=== PATIENT | male | born 1950 | race Caucasian/White ===

== ENCOUNTER 2024-07-22 09:46 | Outpatient (CLI) | payer MEDICARE, BC, SELFPAY ==
--- NOTE | 2024-07-22 10:15 | MR_ITS ---
[address] [address] Phone:?[phone] Fax:?[phone] Referring Physician Information: Paul Martins M.D. [id number] [facility] [address] Phone:?[phone] Fax:?[phone] Patient:Carter Iglesias D.O.B:?1950 Sex:?Male Phone:?[phone] [facility] MRN:?[id number] Exam Date:?07/22/2024 EXAM: MRI of the RIGHT KNEE, without contrast CLINICAL HISTORY: Ongoing right knee pain. History of previous right knee surgery. COMPARISONS: Radiographs 07/20/2024. TECHNICAL: MR sequences of the right knee: sagittals: PD, PDFS coronals: PD, STIR axials: PD, T2 FS CONTRAST: None SEDATION: None FINDINGS: Bones: No fracture or destructive osseous lesion. 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 Extensive grade III chondromalacia over the median patellar ridge and lateral patellar facet. Retinacula: The medial and lateral retinacula are intact. Fat pads: The infrapatellar, quadriceps, and prefemoral fat pads are unremarkable. Knee joint: Effusion: Small right knee joint effusion. Popliteal cyst: None. Intra-articular bodies: None. Posteromedial corner: The semimembranosus and pes anserine tendons are intact. Medial compartment: Medial meniscus: Surgical changes status post partial medial meniscectomy are suspected. Suspected recurrent tear from the body through posterior horn/posterior root junction of the medial meniscus with a 3 x 2 mm flap of torn meniscal tissue from the body extruded into the medial gutter. Cartilage: Single focus of slitlike chondral fissuring over the lateral weightbearing portion of the medial femoral condyle with subjacent subchondral edema-like signal. Lateral compartment: Lateral meniscus: 1.7 cm in length complex tear from the posterior horn through posterior root insertion of the lateral meniscus. Additionally, free edge fraying of the body of the lateral meniscus. Cartilage: 1.0 x 0.6 cm area of full-thickness chondral loss over the posterior weightbearing portion of the lateral femoral condyle and a 0.5 x 0.3 cm focus of near full-thickness chondral loss over the central portion of the lateral tibial plateau. Ligaments: Anterior cruciate ligament: Intact. Posterior cruciate ligament: Severe mucoid degeneration. 3.8 x 1.2 x 1.9 cm ganglion posterior to the posterior cruciate ligament. Medial collateral ligament: Intact. Posterior oblique ligament: Intact. Fibular collateral ligament: Intact. Posterolateral corner: The distal biceps femoris tendon, iliotibial band, popliteus tendon, popliteus muscle, popliteofibular ligament, and arcuate ligament are intact. Extensor mechanism: Patellar tendon: Intact. Quadriceps tendon: Intact. IMPRESSION: 1. 1.7 cm in length complex tear from the posterior horn through posterior root insertion of the lateral meniscus. Additionally, free edge fraying of the body of the lateral meniscus. Correlate with surgical history and any available previous MRI of the right knee. 2. Surgical changes status post partial medial meniscectomy are suspected. Suspected recurrent tear from the body through posterior horn/posterior root junction of the medial meniscus with a 3 x 2 mm flap of torn meniscal tissue from the body extruded into the medial gutter. Correlation with surgical history and any available previous MRI could be pursued to better differentiate chronic pathology/postoperative change from recurrent medial meniscal pathology. 3. 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 Extensive grade III chondromalacia over the median patellar ridge and lateral patellar facet. 4. 1.0 x 0.6 cm area of full-thickness chondral loss over the posterior weightbearing portion of the lateral femoral condyle and a 0.5 x 0.3 cm focus of near full-thickness chondral loss over the central portion of the lateral tibial plateau. 5. Single focus of slitlike chondral fissuring over the lateral weightbearing portion of the medial femoral condyle with subjacent subchondral edema-like signal. 6. Severe mucoid degeneration of the posterior cruciate ligament. 3.8 x 1.2 x 1.9 cm ganglion posterior to the posterior cruciate ligament. 7. Small right knee joint effusion. RCB Electronically signed on 07/22/2024 1:01:00 PM by Gonzalo Espinal M.D.
== END 2024-07-22 09:47 | disposition home or self-care (01) ==
PROVIDERS: PCP Family Medicine; Visit Provider Orthopaedic Surgery
DX: M25.561 Pain in right knee (principal); S83.271A Complex tear of lateral meniscus, current injury, right knee, initial encounter; S83.241A Other tear of medial meniscus, current injury, right knee, initial encounter; M22.41 Chondromalacia patellae, right knee; M25.461 Effusion, right knee
CPT/HCPCS: 73721

== ENCOUNTER 2024-12-21 13:08 | Inpatient (IN) | payer MEDICARE, BC, SELFPAY ==
[2024-12-17 13:15] VITALS: BP 121/73; PULSE 71; RESP 17; TEMP 35.5; O2SAT 90
[2024-12-17 13:30] VITALS: BP 103/78; PULSE 60; RESP 18; TEMP 35.7; O2SAT 94
[2024-12-20] VITALS (21 sets, daily range): BP systolic 87–132; BP diastolic 62–93; PULSE 53–97; RESP 14–18; TEMP 35.4–36.6; O2SAT 88–100; BMI 28.8
[2024-12-20] MEDS: SODIUM CHLORIDE 0.9 % (FLUSH) 10 ML SYRINGE IVF (08:00)
[2024-12-20] MEDS: LACTATED RINGERS 1000 ML 1,000 ML 100 ML IV ×2 (08:00→11:00)
[2024-12-20] MEDS: OXYCODONE (CR) 10 MG TAB.ER.12H PO (08:35)
[2024-12-20] MEDS: ACETAMINOPHEN 500 MG TABLET 1000 MG PO ×3 (08:35→19:46)
[2024-12-20] MEDS: CELECOXIB 200 MG CAPSULE PO (08:35)
[2024-12-20] MEDS: MIDAZOLAM HCL 1 MG/ML inj IVP (08:40)
[2024-12-20] MEDS: TRANEXAMIC ACID 100 MG/ML INJ 1000 MG IV (09:35)
--- NOTE | 2024-12-20 11:06 | SUR.PREOP ---
TIME?OUT:?0845 PT/RN/MDA?VERIFICATION?OF?SURGICAL?SITE,?PROCEDURE,?AND?CONSENT OBTAINED?PRIOR?TO?INVASIVE?PROCEDURE.
--- NOTE | 2024-12-20 11:08 | CRLHL7_ITS ---
For Patients: As a result of the Cures Act, medical imaging exams and procedure reports are released immediately into your electronic medical record. You may view this report before your referring provider. If you have questions, please contact your health care provider. Indication: Postop TKA Technique: Two views right knee Findings/Impression: Hardware from a right total knee arthroplasty is in satisfactory position. Bone alignment is normal. No sign of acute fracture. Postop changes are within normal limits. Dictated by Rommel Matson MD @ 12/20/2024 12:15:50 PM (Electronically Signed)
--- NOTE | 2024-12-20 11:12 | PM.ORPRC ---
Procedure Note Date of procedure: 12/20/24 Procedure: PREOPERATIVE DIAGNOSIS: Right knee osteoarthritis POSTOPERATIVE DIAGNOSIS: Right knee osteoarthritis NAME OF OPERATION: Right total knee arthroplasty SURGEON: Paul Martins MD SEE WHEELER: BERNY Aldana ANESTHESIA: Spinal ESTIMATED BLOOD LOSS: 0 mL COMPLICATIONS: None SPECIMENS: None DRAINS: None PREOPERATIVE ANTIBIOTICS: Ancef 3 g IMPLANTS: 1. J&J Attune # 8 posterior stabilized femur 2. # 8 fixed-bearing tibia 3. # 8 posterior stabilized, 6 mm fixed-bearing polyethylene 4. 38 patella INDICATIONS: The patient is a 74-year-old with a longstanding history of severe, unrelenting right knee pain secondary to end-stage (grade IV) right knee osteoarthritis. Despite appropriate nonoperative management, including activity modification, anti-inflammatories, [id number] pain medication, bracing, physical therapy, and injections they continue to have pain and disability. Operative intervention was offered. The risks, benefits and expected outcomes were discussed in detail. These included but were not limited to: Infection, bleeding, injury to blood vessel or nerve, venous thromboembolism. All questions were answered to their satisfaction. Use of an assistant to the director was necessary throughout the case for patient positioning and safety, soft tissue retraction, and closure. PROCEDURE: Spinal anesthesia was administered. The patient was placed supine on the operating table. The assistant to the director made sure the patient was positioned appropriately. The lower extremity was prepped and draped in the usual sterile fashion. The limb was exsanguinated with the Alden bandage. The pneumatic tourniquet was inflated to 225mmHg. A standard anterior incision was made with the knee in flexion. Subcutaneous dissection was sharply taken through fascial layer #1. Full-thickness medial and lateral flaps were elevated. The assistant to the director retracted the soft tissues and protected them throughout the case. A standard subvastus approach was made. The patella was subluxed. The infrapatellar fat pad was preserved. The menisci and cruciate ligaments were sharply d?brided. Marginal osteophytes were d?brided with the rongeur. The drill was used to penetrate the femoral canal. The intramedullary femoral guide was placed for a 5-degree valgus cut, removing 10 mm off the distal femur. The saw was used to make the cut. Whitesides line and the trans epicondylar axis were marked. The femoral sizing guide was pinned onto the distal femur. Three degrees of external rotation nicely parallels the transepicondylar axis. Pins were placed for posterior referencing. The four-in-one cutting guide was pinned onto the distal femur. The anterior, posterior, and chamfer cuts were made. The assistant to the director protected the collateral ligaments. The box cutting guide was pinned. The box cuts were made. The boxed trial was placed and was an excellent fit. Drill holes for the lugs were made. Attention was then turned to the proximal tibia. The extramedullary tibial guide was placed for a neutral varus/valgus cut with 5 degrees of posterior slope, removing 2 mm based off the medial tibial surface. The assistant to the director protected the collateral ligaments and the neurovascular bundle. The saw was used to make the cut. Trial components were placed. The knee was nicely balanced in both flexion and extension. The trial components were removed. The tray was placed in appropriate rotation, parallel to our tibial cutting pins. It was pinned by the assistant to the director and the drill and the punch were used. The tray was removed. The punch was used again. We placed a bone plug in the femoral canal. Attention was then turned to the patella. [place] patellar thickness was 22.5 mm. The lobster claw resection guide was used with the 9.5 mm delia. The saw was used to make the cut. Drill holes were made by the assistant to the director. The trial was placed and was an excellent fit. Cancellous surfaces were irrigated with pulse lavage and thoroughly dried by the assistant to the director. We cemented the tibial component, then the femoral component. We impacted the 6 mm polyethylene onto the tibial tray. The knee was brought into full extension. We then cemented the patellar component. Excessive cement was removed. The cement was allowed to harden. The knee was taken through a range of motion and was found to be nicely balanced in both flexion and extension. The patella tracks centrally. The assistant to the director did a three minute dilute Betadine solution soak. The assistant to the director irrigated the wound with 3 liters of normal saline via pulse lavage. The assistant to the director reapproximated the extensor mechanism with #1 Vicryl in an interrupted dgyiwg-ap-gwgob fashion. The assistant to the director then ran the extensor mechanism with a #1 PDO Stratafix. The assistant to the director closed the subcutaneous tissues with a 3-0 Stratafix and the skin with a running 3-0 Stratafix in a subcuticular fashion. Glue was used to seal the skin. The assistant to the director placed a dry dressing. Sponge and needle counts were correct x2. The patient tolerated the procedure well. There were no apparent complications. They were carefully transferred to the hospital bed and taken to the postanesthesia care unit in satisfactory condition. PLAN: The patient will be mobilized with physical therapy. The usual dose of Eliquis will be restarted. They will be discharged to home once medically appropriate.
--- NOTE | 2024-12-20 11:46 | P.NB_ITS ---
Nerve Block Nerve Block Time Seen by Provider: 08:45 Date Seen: 12/20/24 Type of block requested by surgeon for post-operative analgesia: adductor canal Side: right Time out performed: Yes Verification of patient name: Yes Verification of date of : Yes Site marking: site marked Name of person performing procedure: Marcos Continuous monitoring Was continuous monitoring of O2 sat, B/P, school lunch monitor, recorded every 15 minutes?: Yes Procedure Checklist: sterile prep, needles and gloves Ultrasound guided. Images saved: Yes Medications given in 5ml increments after negative aspiration: Marcaine %: 0.25 mL: 15 Needle gauge: 20 Precedex (mcg): 25 Patient tolerated procedure well: Yes Block Charges Block Charge (with Pro Fee): Femoral Nerve Use of Ultrasound Machine for Block: Yes- US Guidance/pain block
--- NOTE | 2024-12-20 11:47 | P.ANES_ITS ---
Anesthesia Charges Start Date/Time Anesthesia Start Date: 12/20/24 Anesthesia Start Time: 09:20 Stop Date/Time Anesthesia Stop Date: 12/20/24 Anesthesia Stop Time: 11:48 Summary Extremes of Age - Over 70 or under 1: ASSISTANT HAIRSTYLIST Coding CPT Codes CPT Codes: ANESTH KNEE ARTHROPLASTY - 06697 ([id number]) P2 - PATIENT W/MILD SYST DISEASE, QK - ENTERTAINMENT CENTRE MANAGER 2-4 CNCRNT ANES PROC, QX - ASSISTANT HAIRSTYLIST SVC W/ MD MED DIRECTION Additional Codes: Summary - Extremes of Age - Over 70 or under 1: ASSISTANT HAIRSTYLIST ([id number])
--- NOTE | 2024-12-20 11:47 | P.ANES_ITS ---
Anesthesia Charges Start Date/Time Anesthesia Start Date: 12/20/24 Anesthesia Start Time: 09:20 Stop Date/Time Anesthesia Stop Date: 12/20/24 Anesthesia Stop Time: 11:48 Summary Extremes of Age - Over 70 or under 1: MDA Coding CPT Codes CPT Codes: ANESTH KNEE ARTHROPLASTY - 33950 ([id number]) P2 - PATIENT W/MILD SYST DISEASE, QK - SENIOR LOAN OFFICER 2-4 CNCRNT ANES PROC, QX - NEWS INTERNSHIP SVC W/ MD MED DIRECTION Additional Codes: Summary - Extremes of Age - Over 70 or under 1: MDA ([id number])
--- NOTE | 2024-12-20 11:47 | P.NB_ITS ---
Nerve Block Nerve Block Time Seen by Provider: 08:45 Date Seen: 12/20/24 Type of block requested by surgeon for post-operative analgesia: geniculars Side: right Time out performed: Yes Verification of patient name: Yes Verification of date of : Yes Site marking: site marked Name of person performing procedure: Marcos Continuous monitoring Was continuous monitoring of O2 sat, B/P, court monitor, recorded every 15 minutes?: Yes Procedure Checklist: sterile prep, needles and gloves Ultrasound guided. Images saved: Yes Medications given in 5ml increments after negative aspiration: Marcaine %: 0.25 mL: 9 Needle gauge: 25 Patient tolerated procedure well: Yes Block Charges Block Charge (with Pro Fee): Genicular Nerve Block
--- NOTE | 2024-12-20 11:47 | W.ANESCHARGE ---
Anesthesia Charges Start Date/Time Anesthesia Start Date: 12/20/24 Anesthesia Start Time: 09:20 Stop Date/Time Anesthesia Stop Date: 12/20/24 Anesthesia Stop Time: 11:48 Summary Extremes of Age - Over 70 or under 1: MDA Coding CPT Codes CPT Codes: ANESTH KNEE ARTHROPLASTY - 88723 ([id number]) P2 - PATIENT W/MILD SYST DISEASE, QK - TRIPLE VALVE TESTER 2-4 CNCRNT ANES PROC, QX - MOTORBOAT MECHANIC INBOARD/OUTBOARD SVC W/ MD MED DIRECTION Additional Codes: Summary - Extremes of Age - Over 70 or under 1: MDA ([id number])
--- NOTE | 2024-12-20 11:47 | W.ANESCHARGE ---
Anesthesia Charges Start Date/Time Anesthesia Start Date: 12/20/24 Anesthesia Start Time: 09:20 Stop Date/Time Anesthesia Stop Date: 12/20/24 Anesthesia Stop Time: 11:48 Summary Extremes of Age - Over 70 or under 1: CODING QUALITY ANALYST Coding CPT Codes CPT Codes: ANESTH KNEE ARTHROPLASTY - 39484 ([id number]) P2 - PATIENT W/MILD SYST DISEASE, QK - BRAKE REPAIRER BUS 2-4 CNCRNT ANES PROC, QX - CODING QUALITY ANALYST SVC W/ MD MED DIRECTION Additional Codes: Summary - Extremes of Age - Over 70 or under 1: CODING QUALITY ANALYST ([id number])
[2024-12-20] MEDS: LACTATED RINGERS 1000 ML 1,000 ML 75 ML IV (13:17)
--- NOTE | 2024-12-20 15:09 | PM.IMCN1 ---
Date of Consult Patient: Nikkie Patient Consult date: 12/20/24 Requesting Physician: Orthopedics Primary Care Provider: Demar Devi MD Consult Narrative Reason for consult: Medical management Narrative: Misael Iglesias is a 74 year old male significant for hyperlipidemia, obesity is POD#0 s/p right total knee arthroplasty, Dr. Martins. Postoperatively, patient reports block is starting to wear off so pain is starting to increase slightly. Denies headache or dizziness. Denies chest pain or shortness of breath. Tolerating orals without nausea or vomiting. There have been no perioperative complications or nursing concerns reported. Estimated total blood loss documented as 0ml. Updated and reviewed the active medical problems, past medical history, past surgical history, social history, allergies and medications in our electronic EMR. Review of Systems Narrative: REVIEW OF SYSTEMS: Complete review of systems performed and negative unless otherwise stated in HPI or below. [facility] (Updated 12/20/24 @ 15:42 by Trish Davies PA-C) Atrial fibrillation ?I48.91 - Unspecified atrial fibrillation (ICD-10) Strain of right hip ?S76.011A - Strain of muscle, fascia and tendon of right hip, initial encounter (ICD-10) Hip pain, right ?M25.551 - Pain in right hip (ICD-10) Acute otitis externa of left ear ?H60.502 - Unspecified acute noninfective otitis externa, left ear (ICD-10) Primary osteoarthritis of right knee ?M17.11 - Unilateral primary osteoarthritis, right knee (ICD-10) Former smoker ?Z87.891 - Personal history of nicotine dependence (ICD-10) Sinusitis ?J32.9 - Chronic sinusitis, unspecified (ICD-10) Pneumonia, organism unspecified ?J18.9 - Pneumonia, unspecified organism (ICD-10) Left wrist fracture ?S62.102A - Fracture of unspecified carpal bone, left wrist, initial encounter for closed fracture (ICD-10) Colon polyps ?K63.5 - Polyp of colon (ICD-10) Obesity (BMI 30-39.9) ?E66.9 - Obesity, unspecified (ICD-10) Other and unspecified hyperlipidemia ?E78.5 - Hyperlipidemia, unspecified (ICD-10) Surgical History (Updated 12/20/24 @ 15:33 by Yari M Sonu ~ PRESSING MACHINE TENDER, PRESSING MACHINE TENDER) History of arthroplasty of right knee (12/20/24) ?Z96.651 - Presence of right artificial knee joint (ICD-10) S/P right knee arthroscopy (~2013) ?Z98.890 - Other specified postprocedural states (ICD-10) S/P right rotator cuff repair ?Z98.890 - Other specified postprocedural states (ICD-10) S/P left rotator cuff repair ?Z98.890 - Other specified postprocedural states (ICD-10) History of colonoscopy ?Z98.890 - Other specified postprocedural states (ICD-10) Social History Narrative: former smoker (quit in the ) Will have occasional cigar What is your current living situation?: I presently have a place to live Problems where you live: no known problems In the past 12 months, utilities in danger of being shut off: no In past 12 months, lack of transportation kept you from medical appts, meetings, work, or getting things needed for daily living: no In the past 12 mos, have been you worried that your food would run out before you had money to buy more?: never true In the past 12 mos, the food you bought just didn't last and you didn't have money to buy more?: never true Smoking Status: Former smoker What tobacco products do you use: cigars Do you use any of these nicotine containing products: None Second hand tobacco smoke exposure: No How often do you have a drink containing alcohol: 2-4 times a month Alcohol type: beer How many standard drinks containing alcohol do you have on a typical day: 1 or 2 How often do you have six or more drinks on one occasion: Never AUDIT-C Alcohol total score: 2 Non-prescribed substance use: denies use Caffeine: Yes How often does anyone, including family, friends and others, physically hurt you: never How often does anyone, including family, friends and others, insult or talk down to you: never How often does anyone, including family, friends and others, threaten you with harm: never How often does anyone, including family, friends and others, scream or curse at you: never Meds Home Medications and Allergies Home Medications ?Medication ?Instructions ?Recorded ?Confirmed ?Type atorvastatin 80 mg tablet 80 mg PO QPM 07/20/24 12/20/24 History cholecalciferol (vitamin D3) 25 25 mcg PO QDAY 09/19/24 12/20/24 History mcg (1,000 unit) tablet (Vitamin D3) multivitamin (Multiple Vitamins 1 tab PO QDAY 09/19/24 12/20/24 History tablet) apixaban 5 mg tablet 5 mg PO BID 12/09/24 12/20/24 History acetaminophen 500 mg capsule 500 - 1,000 mg (1 - 2 x 500 mg) PO 12/20/24 Rx Q6H PRN pain #100 caps ascorbic acid (vitamin C) 500 mg 500 mg PO DAILY 12/20/24 12/20/24 History capsule cetirizine 10 mg capsule (All Day 10 mg PO DAILY 12/20/24 12/20/24 History Allergy (cetirizine)) cyanocobalamin (vitamin B-12) 1,000 mcg PO DAILY 12/20/24 12/20/24 History 1,000 mcg tablet oxycodone 5 mg tablet 2.5 - 5 mg (0.5 - 1 x 5 mg) PO 12/20/24 Rx Q4-6H PRN Pain #42 tabs sennosides 8.6 mg tablet (Senna 17.2 mg (2 x 8.6 mg) PO BID PRN 12/20/24 Rx Lax) constipation #100 tabs vitamin E 670 mg (1,000 unit) 670 mg PO DAILY 12/20/24 12/20/24 History capsule Allergies Allergy/AdvReac Type Severity Reaction Status Date / Time No Known Drug Allergies Allergy Verified 12/20/24 07:16 Exam Narrative: Exam Narrative: PHYSICAL EXAM General: Pleasant, conversant, NAD HEENT: Normocephalic, atraumatic, sclera white, EOMI, oral mucosa moist Cardiovascular: RRR, S1S2. No pitting edema Pulmonary: CTA bilaterally without rhonchi, rales, expiratory wheezes. No dyspnea Neurological: Alert, answering questions appropriately, cranial nerves intact, no focal findings Extremities: No gross joint deformity or swelling. Postoperative dressing in place, dry. Neurovascularly intact Skin: Warm, dry. Const: Vital Signs, click to edit/add: Vital Signs - 24 hr 12/20/24 08:21 12/20/24 08:45 12/20/24 11:45 Temperature 97.9 F 96.5 F L Pulse Rate 93 76 81 Pulse Rate [Left P ulse Oximeter] Respiratory Rate 16 18 14 Blood Pressure 132/93 H 121/87 89/70 L Blood Pressure [Ri ght Arm] Pulse Oximetry 96 93 88 Oxygen Delivery Me thod Nasal Cannula Room Air Oxygen Flow Rate 3 12/20/24 11:50 12/20/24 11:55 12/20/24 12:00 Temperature Pulse Rate 77 75 68 Pulse Rate [Left P ulse Oximeter] Respiratory Rate 14 14 14 Blood Pressure 105/74 92/71 99/72 Blood Pressure [Ri ght Arm] Pulse Oximetry 98 95 98 Oxygen Delivery Me thod Nasal Cannula Nasal Cannula Nasal Cannula Oxygen Flow Rate 2 2 2 12/20/24 12:05 12/20/24 12:10 12/20/24 12:15 Temperature 96.5 F L Pulse Rate 75 69 66 Pulse Rate [Left P ulse Oximeter] Respiratory Rate 14 14 14 Blood Pressure 87/62 L 102/66 87/71 L Blood Pressure [Ri ght Arm] Pulse Oximetry 98 93 96 Oxygen Delivery Me thod Nasal Cannula Nasal Cannula Nasal Cannula Oxygen Flow Rate 1 1 1 12/20/24 12:35 12/20/24 12:45 12/20/24 13:00 Temperature 95.8 F L 96.1 F L 96.1 F L Pulse Rate Pulse Rate [Left P ulse Oximeter] 71 72 66 Respiratory Rate 16 18 17 Blood Pressure Blood Pressure [Ri ght Arm] 99/79 113/79 113/79 Pulse Oximetry 95 90 95 Oxygen Delivery Me thod Room Air Room Air Room Air Oxygen Flow Rate 12/20/24 14:00 12/20/24 14:30 Temperature 96.2 F L Pulse Rate Pulse Rate [Left P ulse Oximeter] 78 76 Respiratory Rate 17 17 Blood Pressure Blood Pressure [Ri ght Arm] 111/72 113/79 Pulse Oximetry 97 97 Oxygen Delivery Me thod Room Air Room Air Oxygen Flow Rate Assessment and Plan Assessment and plan (1) Primary osteoarthritis of right knee: Problem comment: -POD#0 s/p R TKA, Dr. Martins -perioperative management including pain management and anticoagulation per Orthopedic surgery - resume Apixiban POD #1 as discussed with surgical team -encourage postoperative pulmonary hygiene -PT OT consults -plan to discharge home with spouse tomorrow Status: Acute (2) Atrial fibrillation: Problem comment: - recent diagnosis, has first Cardiology consult in January - not on rate control - resume apixiban 5 mg b.i.d.12/21 Status: Acute (3) Other and unspecified hyperlipidemia: Problem comment: - resume statin upon discharge Status: Acute Plan Hospital medicine team will sign off. Please contact our service with any questions or concerns. Total Time Spent Total Time Spent: Today I spent 75 minutes seeing the patient, reviewing Expanse and EPIC notes/diagnostics, discussing the care plan with our care time that includes social work, PT/OT, pharmacy, RT, fdc and documenting my impressions and plan in the medical record.
[2024-12-20] MEDS: CEFAZOLIN 2 GM in 0.9 % SODIUM CHLORIDE Mini-bag 100 ML IVPB ×2 (15:35→23:15)
--- NOTE | 2024-12-20 19:23 | PC.NURSE ---
End of shift-- Very pleasant and cooperative, alert and oriented patient arrived from PACU at approximately 1235. VSS and pt is afebrile. SPO2 maintained >94% on RA. Pain appears well controlled with scheduled Tylenol and oxycodone as needed. Dressing to right knee is C/D/I and CMS is WNL. LS CTA. He denied nausea and ate 100% of a regular dinner without difficulty. He was up to the BR and chair with assist of 1, belt and walker and tolerated it very well.
[2024-12-20] MEDS: SENNOSIDES 1 TAB TABLET 2 TAB PO (21:01)
[2024-12-21] VITALS (13 sets, daily range): BP systolic 105–133; BP diastolic 68–99; PULSE 91–124; RESP 16–18; TEMP 35.8–37.6; O2SAT 93–97
[2024-12-21] MEDS: ACETAMINOPHEN 500 MG TABLET 1000 MG PO ×4 (02:21→20:25)
--- NOTE | 2024-12-21 08:11 | PM.ORPN ---
Subjective Subjective Time Seen by Provider: 07:30 Date Seen: 12/21/24 Principal diagnosis: Status post right knee replacement Interval history: Misael feels his block has not worked. He has gotten out of bed and ambulated several times since surgery. He will be discharged today. Ortho Exam Narrative Exam Narrative: Alert and oriented x3. Patient is in no acute distress. Converses without labored breathing. Hearing is grossly intact. Ambulates with a walker. Examination of the right knee shows the dressing is intact. No erythema or warmth or sign of infection. Mild anterior knee hematoma. He is able to straight leg raise. Calves are soft nontender. CMS is intact right lower extremity. Const Vital Signs, click to edit/add: Vital Signs - 24 hr 12/20/24 08:21 12/20/24 08:45 12/20/24 11:45 Temperature 97.9 F 96.5 F L Pulse Rate 93 76 81 Pulse Rate [Left Pulse Oximeter] Pulse Rate [Right Dorsalis Pedis] Respiratory Rate 16 18 14 Blood Pressure 132/93 H 121/87 89/70 L Blood Pressure [Right Arm] Pulse Oximetry 96 93 88 Oxygen Delivery Method Nasal Cannula Room Air Oxygen Flow Rate 3 12/20/24 11:50 12/20/24 11:55 12/20/24 12:00 Temperature Pulse Rate 77 75 68 Pulse Rate [Left Pulse Oximeter] Pulse Rate [Right Dorsalis Pedis] Respiratory Rate 14 14 14 Blood Pressure 105/74 92/71 99/72 Blood Pressure [Right Arm] Pulse Oximetry 98 95 98 Oxygen Delivery Method Nasal Cannula Nasal Cannula Nasal Cannula Oxygen Flow Rate 2 2 2 12/20/24 12:05 12/20/24 12:10 12/20/24 12:15 Temperature 96.5 F L Pulse Rate 75 69 66 Pulse Rate [Left Pulse Oximeter] Pulse Rate [Right Dorsalis Pedis] Respiratory Rate 14 14 14 Blood Pressure 87/62 L 102/66 87/71 L Blood Pressure [Right Arm] Pulse Oximetry 98 93 96 Oxygen Delivery Method Nasal Cannula Nasal Cannula Nasal Cannula Oxygen Flow Rate 1 1 1 12/20/24 12:35 12/20/24 12:45 12/20/24 13:00 Temperature 95.8 F L 96.1 F L 96.1 F L Pulse Rate Pulse Rate [Left Pulse Oximeter] 71 72 66 Pulse Rate [Right Dorsalis Pedis] Respiratory Rate 16 18 17 Blood Pressure Blood Pressure [Right Arm] 99/79 113/79 113/79 Pulse Oximetry 95 90 95 Oxygen Delivery Method Room Air Room Air Room Air Oxygen Flow Rate 12/20/24 14:00 12/20/24 14:30 12/20/24 15:00 Temperature 96.2 F L Pulse Rate Pulse Rate [Left Pulse Oximeter] 78 76 Pulse Rate [Right Dorsalis Pedis] Respiratory Rate 17 17 16 Blood Pressure Blood Pressure [Right Arm] 111/72 113/79 Pulse Oximetry 97 97 Oxygen Delivery Method Room Air Room Air Oxygen Flow Rate 12/20/24 15:00 12/20/24 15:00 12/20/24 16:00 Temperature 96.2 F L 96.2 F L Pulse Rate Pulse Rate [Left Pulse Oximeter] 53 L 71 Pulse Rate [Right Dorsalis Pedis] Respiratory Rate 16 16 16 Blood Pressure Blood Pressure [Right Arm] 100/64 121/82 Pulse Oximetry 97 100 99 Oxygen Delivery Method Room Air Room Air Room Air Oxygen Flow Rate 12/20/24 17:00 12/20/24 18:00 12/20/24 19:20 Temperature 96.6 F L Pulse Rate 73 Pulse Rate [Left Pulse Oximeter] 73 92 Pulse Rate [Right Dorsalis Pedis] Respiratory Rate 16 16 Blood Pressure Blood Pressure [Right Arm] 114/86 109/85 Pulse Oximetry 99 94 Oxygen Delivery Method Room Air Room Air Oxygen Flow Rate 12/20/24 22:10 12/20/24 23:00 12/20/24 23:00 Temperature 97.3 F L Pulse Rate 97 Pulse Rate [Left Pulse Oximeter] Pulse Rate [Right Dorsalis Pedis] 85 Respiratory Rate 16 16 Blood Pressure Blood Pressure [Right Arm] 100/66 Pulse Oximetry 96 96 Oxygen Delivery Method Room Air Room Air Oxygen Flow Rate 12/21/24 02:25 12/21/24 06:30 Temperature 96.5 F L 97.2 F L Pulse Rate Pulse Rate [Left Pulse Oximeter] 124 H Pulse Rate [Right Dorsalis Pedis] Respiratory Rate 16 18 Blood Pressure Blood Pressure [Right Arm] 106/68 125/81 Pulse Oximetry 96 94 Oxygen Delivery Method Room Air Room Air Oxygen Flow Rate Assessment and Plan Assessment and plan (1) History of arthroplasty of right knee: Problem details: Right total knee arthroplasty (12/20/2024, Dr. Martins) Status: Acute Assessment and Plan: Plan for discharge is today to home if they meet discharge criteria. DVT prophylaxis includes Eliquis 5 mg twice daily, he takes this for atrial fibrillation. Compression stockings as needed for swelling. Frequent ambulation, every hour throughout the day. Remove dressing in 1 week. Observe wound and phone Orthopedics with any questions or concerns Return to clinic in 1-2 weeks for a wound check as scheduled Return to clinic in 6 weeks with surgeon Minimize narcotic use. Wean off and discontinue soon as possible. Activities as tolerated. No strenuous activity. Outpatient physical therapy as scheduled. Ice and elevate the operative extremity. No restriction on ice. Tylenol, oxycodone, senna have been sent to his pharmacy. He states that he has Tylenol and a stool softener at home. 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
--- NOTE | 2024-12-21 08:15 | PC.SOCIAL ---
Discharge planning: SW met with patient who states that he is doing alright. Patient seemed tired and low mood, but reports that his pain is low and he's been able to get up a few times. Patient reports that he has all he needs for home and that his is there for support. Patient had no concerns and requested no resources/supports. SW to assist if needs arise.
[2024-12-21] MEDS: SENNOSIDES 1 TAB TABLET 2 TAB PO ×2 (08:57→20:25)
[2024-12-21] MEDS: APIXABAN 5 MG TABLET PO ×2 (08:58→20:24)
[2024-12-21] MEDS: METOPROLOL TARTRATE 1 MG/ML inj 5 MG IVP (09:35)
--- NOTE | 2024-12-21 09:50 | P.IMPN_ITS ---
Assessment and Plan Assessment and plan (1) Atrial fibrillation: Problem comment: - incidentally noted on a stress test in October 2024, ordered by PCP for dyspnea on exertion. Has not yet seen Cardiology but has appointment scheduled 02/02 - reassuring TTE October 2024 with EF 55-60% - during preoperative visit with PCP, was rate controlled - notably does not have symptoms, even when in RVR - heart rate up to 170 during PT on postop day 1, given metoprolol with rate control, then symptomatic hypotension - will initiate Cardizem 12/21 and continue to follow on telemetry - plan to discharge on Zio patch with close PCP follow-up - restarted Apixaban 12/21 (initiated in October after a fib diagnosis) Status: Acute (2) History of arthroplasty of right knee: Problem comment: - Right total knee arthroplasty (12/20/2024, Dr. Martins) Status: Acute Plan - per above, requires further stay given AFib with RVR - likely home on Cardizem + Zio patch with close PCP f/u on 12/22 pending clinical course - updated bedside, questions answered Subjective Date Seen: 12/21/24 Interval history: Misael had a RTKA yesterday, no surgical or anesthetic complications during procedure, has been followed on telemetry postoperatively. This morning, he was noted to be in a fib RVR with heart rate up to 170s. He did not have symptoms with this heart rate. Known history of paroxysmal atrial fibrillation, diagnosed in October 2024 during a stress test (done for ABDUL). PCP has referred him to Cardiology, doesn't have an appt until 02/02. Doesn't follow heart rate at home. No CHF, TTE from October below: Final Impressions: 1. Normal LV size, normal wall thickness, normal global systolic function with an estimated EF of 55 - 60%. 2. Right ventricular cavity size is normal, global systolic RV function is norm al. 3. The mitral valve is normal, mild to moderate mitral regurgitation. 4. Mildly enlarged left atrium. After his PT, he was given a dose of 5 mg IV metoprolol. This did bring his rate down into the 80s, then blood pressure noted to be 100s systolic and he was lightheaded during occupational therapy. On chart review, he does not have a history of hypertension, typically has systolic blood pressure of 120-130 in the clinic. Exam Narrative: Exam Narrative: GEN: Patient is seen just after PT, he is alert and oriented, nontoxic HEENT: EOMIs bilaterally, no scleral icterus CV: Irregular rhythm, rate 130s (this was prior to Metoprolol administration) R: Lungs are clear, no wheezing Ext: wwp, no edema, incision over right knee has no concerning findings Skin: No concerning skin lesions or rashes on exposed skin Neuro: Nonfocal Psych: Appropriate Const: Vital Signs, click to edit/add: Vital Signs - 24 hr 12/20/24 11:45 12/20/24 11:50 12/20/24 11:55 Temperature 96.5 F L Pulse Rate 81 77 75 Pulse Rate [Left P ulse Oximeter] Pulse Rate [Right Dorsalis Pedis] Respiratory Rate 14 14 14 Blood Pressure 89/70 L 105/74 92/71 Blood Pressure [Ri ght Arm] Pulse Oximetry 88 98 95 Oxygen Delivery Me thod Room Air Nasal Cannula Nasal Cannula Oxygen Flow Rate 2 2 12/20/24 12:00 12/20/24 12:05 12/20/24 12:10 Temperature Pulse Rate 68 75 69 Pulse Rate [Left P ulse Oximeter] Pulse Rate [Right Dorsalis Pedis] Respiratory Rate 14 14 14 Blood Pressure 99/72 87/62 L 102/66 Blood Pressure [Ri ght Arm] Pulse Oximetry 98 98 93 Oxygen Delivery Me thod Nasal Cannula Nasal Cannula Nasal Cannula Oxygen Flow Rate 2 1 1 12/20/24 12:15 12/20/24 12:35 12/20/24 12:45 Temperature 96.5 F L 95.8 F L 96.1 F L Pulse Rate 66 Pulse Rate [Left P ulse Oximeter] 71 72 Pulse Rate [Right Dorsalis Pedis] Respiratory Rate 14 16 18 Blood Pressure 87/71 L Blood Pressure [Ri ght Arm] 99/79 113/79 Pulse Oximetry 96 95 90 Oxygen Delivery Me thod Nasal Cannula Room Air Room Air Oxygen Flow Rate 1 12/20/24 13:00 12/20/24 14:00 12/20/24 14:30 Temperature 96.1 F L 96.2 F L Pulse Rate Pulse Rate [Left P ulse Oximeter] 66 78 76 Pulse Rate [Right Dorsalis Pedis] Respiratory Rate 17 17 17 Blood Pressure Blood Pressure [Ri ght Arm] 113/79 111/72 113/79 Pulse Oximetry 95 97 97 Oxygen Delivery Me thod Room Air Room Air Room Air Oxygen Flow Rate 12/20/24 15:00 12/20/24 15:00 12/20/24 15:00 Temperature 96.2 F L Pulse Rate Pulse Rate [Left P ulse Oximeter] 53 L Pulse Rate [Right Dorsalis Pedis] Respiratory Rate 16 16 16 Blood Pressure Blood Pressure [Ri ght Arm] 100/64 Pulse Oximetry 97 100 Oxygen Delivery Me thod Room Air Room Air Oxygen Flow Rate 12/20/24 16:00 12/20/24 17:00 12/20/24 18:00 Temperature 96.2 F L 96.6 F L Pulse Rate Pulse Rate [Left P ulse Oximeter] 71 73 92 Pulse Rate [Right Dorsalis Pedis] Respiratory Rate 16 16 16 Blood Pressure Blood Pressure [Ri ght Arm] 121/82 114/86 109/85 Pulse Oximetry 99 99 94 Oxygen Delivery Me thod Room Air Room Air Room Air Oxygen Flow Rate 12/20/24 19:20 12/20/24 22:10 12/20/24 23:00 Temperature 97.3 F L Pulse Rate 73 Pulse Rate [Left P ulse Oximeter] Pulse Rate [Right Dorsalis Pedis] 85 Respiratory Rate 16 16 Blood Pressure Blood Pressure [Ri ght Arm] 100/66 Pulse Oximetry 96 96 Oxygen Delivery Me thod Room Air Room Air Oxygen Flow Rate 12/20/24 23:00 12/21/24 02:25 12/21/24 06:30 Temperature 96.5 F L 97.2 F L Pulse Rate 97 Pulse Rate [Left P ulse Oximeter] 124 H Pulse Rate [Right Dorsalis Pedis] Respiratory Rate 16 18 Blood Pressure Blood Pressure [Ri ght Arm] 106/68 125/81 Pulse Oximetry 96 94 Oxygen Delivery Me thod Room Air Room Air Oxygen Flow Rate 12/21/24 08:35 Temperature 97.4 F L Pulse Rate Pulse Rate [Left P ulse Oximeter] Pulse Rate [Right Dorsalis Pedis] 102 H Respiratory Rate 16 Blood Pressure Blood Pressure [Ri ght Arm] 121/85 Pulse Oximetry 93 Oxygen Delivery Me thod Room Air Oxygen Flow Rate
[2024-12-21] MEDS: MAGNESIUM SULF 1 G/100 ML 1 GM/100 ML PIGGYBACK IVPB (13:32)
--- NOTE | 2024-12-21 18:52 | PC.NURSE ---
Pt is pleasant to care for. A&Ox4. Pain is well controlled with PRN medications, ice and rest. Pt is ambulating well with walker and standby assist. Surgical dressing remains clean, dry and intact; no redness or abnormal swelling noted. Pt's BP is stable, however pt is in Afib and HR increases to 150-190 with activity. Provider is aware, see orders. This evening, pt reports feeling like garbage; queasy and tired. His face appeared flush, temperature was 99.6; provider aware. Pt is resting in bed at this time.
[2024-12-22 02:19] VITALS: BP 131/75; PULSE 102; RESP 16; TEMP 37.3; O2SAT 96
[2024-12-22] MEDS: ACETAMINOPHEN 500 MG TABLET 1000 MG PO ×2 (02:23→09:01)
--- NOTE | 2024-12-22 04:56 | PC.NURSE ---
Shift note: Patient is pleasant, alert and oriented. Doing well ambulated with A1, walker and GB. Dressing intact, clean and dry. Telemetry reading continue to be NSR. HR has been stable below 110. Pain level rated between 3 and 5. Vitally stable. Patient had adequate sleep.
[2024-12-22 06:45] LABS: Chloride* 101 mmol/L (96-114); Hematocrit 37.0 % (37.0-53.0); Hemoglobin* 12.4 gm/dL (13.5-17.5); Immature Granulocytes Pct Auto 0.4 %; Mean Corpuscular HGB Conc 34 gm/dL (32-36); Mean Corpuscular Hemoglobin 31 pg (26-34); Mean Corpuscular Volume 92 fL (80-100); Potassium* 4.6 mmol/L (3.6-5.1); RDW Coefficient of Variation % 12.8 % (11.5-15.5); Red Blood Count 4.03 m/uL (4.30-5.90); Sodium* 134 mmol/L (135-149); White Blood Count* 11.34 K/uL (4.50-11.00)
[2024-12-22 06:48] LABS: Anion Gap 5 mEq/L (7-15); Blood Urea Nitrogen* 18 mg/dL (7-30); Calcium* 8.7 mg/dL (8.4-10.6); Carbon Dioxide* 28 mmol/L (20-32); Creatinine* 1.0 mg/dL (0.5-1.5); Est. Creatinine Clearance* 73.24; Estimated Glomerular Filt Rate 79 ml/min; Glucose* 115 mg/dL (60-115)
[2024-12-22 06:50] LABS: Immature Granulocytes Abs Auto 0.00 K/uL (0.00-0.30); Lymphocytes Absolute Auto 2.00 K/uL (0.90-2.90); Slide Review Reflex No
[2024-12-22 07:00] VITALS: BP 120/73; PULSE 79; PULSE 88; RESP 16; TEMP 37.1; O2SAT 95
[2024-12-22] MEDS: SENNOSIDES 1 TAB TABLET 2 TAB PO (08:14)
[2024-12-22] MEDS: APIXABAN 5 MG TABLET PO (08:15)
--- NOTE | 2024-12-22 12:11 | PC.NURSE ---
Pt doing well. VSS. Pain controlled well with PRN medications and ice. Pt ambulating well. Pt belongings and discharge instructions signed. Pt discharged home via at 1200.
--- NOTE | 2024-12-22 15:16 | PM.DS1 ---
DS: Providers Provider Date Seen: 12/22/24 Date of admission: 12/21/24 13:08 Primary care physician: Demar Devi MD Admitting Clinician: Josette Valle MD Consults: 12/20/24 12:24 Consult to Occupational Therapy [CONS] Routine Comment: See nursing Activity Order Reason(s) for OT Consult:: Evaluate and Treat Any Restrictions?:: No Restrictions Consult to Physical Therapy [CONS] Routine Comment: Ambulate in the keane today. Reason(s) for PT Consult:: Evaluate and Treat Any Restrictions?:: No Restrictions Consult to Physician [CONS] Routine Comment: Consulting Provider: Hospitalists Has provider been notified: No Consult to Paper Final Inspector [CONS] Routine Comment: Reason for Consult:: Discharge Planning Needs Attending Physician on discharge: Uli Wayne MD Date of Discharge: 12/22/24 DS: Diagnosis Discharge Diagnosis (1) History of arthroplasty of right knee: Status: Acute Problem details: - Right total knee arthroplasty (12/20/2024, Dr. Matrins) (2) Primary osteoarthritis of right knee: Status: Acute Problem details: -POD#0 s/p R TKA, Dr. Martins -perioperative management including pain management and anticoagulation per Orthopedic surgery - resume Apixiban POD #1 as discussed with surgical team -encourage postoperative pulmonary hygiene -PT OT consults -plan to discharge home with spouse tomorrow (3) Atrial fibrillation: Status: Acute Problem details: - incidentally noted on a stress test in October 2024, ordered by PCP for dyspnea on exertion. Has not yet seen Cardiology but has appointment scheduled 02/02 - reassuring TTE October 2024 with EF 55-60% - during preoperative visit with PCP, was rate controlled - notably does not have symptoms, even when in RVR - heart rate up to 170 during PT on postop day 1, given metoprolol with rate control, then symptomatic hypotension - will initiate Cardizem 12/21 and continue to follow on telemetry - plan to discharge on Zio patch with close PCP follow-up - restarted Apixaban 12/21 (initiated in October after a fib diagnosis) (4) Other and unspecified hyperlipidemia: Status: Acute Problem details: - resume statin upon discharge DS: Summary Hospital Course Hospital Course: s/p RTKA 12/20/2024, no surgical or anesthetic complications during procedure, has been followed on telemetry postoperatively. 12/21/2024 he was noted to be in a fib RVR with heart rate up to 170s. He did not have symptoms with this heart rate. Known history of paroxysmal atrial fibrillation, diagnosed in October 2024 during a stress test (done for ABDUL). PCP has referred him to Cardiology, doesn't have an appt until 02/02. Doesn't follow heart rate at home. No CHF, TTE from October below: Final Impressions: 1. Normal LV size, normal wall thickness, normal global systolic function with an estimated EF of 55 - 60%. 2. Right ventricular cavity size is normal, global systolic RV function is normal. 3. The mitral valve is normal, mild to moderate mitral regurgitation. 4. Mildly enlarged left atrium. After his PT, he was given a dose of 5 mg IV metoprolol. This did bring his rate down into the 80s, then blood pressure noted to be 100s systolic and he was lightheaded during occupational therapy. On chart review, he does not have a history of hypertension, typically has systolic blood pressure of 120-130 in the clinic. Status at Discharge Overall status at discharge: patient is not back to baseline Time Spent with Patient Time attestation: Total time spent providing and/or coordinating discharge services: Time spent: Less than 30 minutes Exam Narrative: Exam Narrative: GEN: Patient is seen just after PT, he is alert and oriented, nontoxic HEENT: EOMIs bilaterally, no scleral icterus CV: Irregular rhythm, rate 80s R: Lungs are clear, no wheezing Ext: wwp, no edema, incision over right knee has no concerning findings Skin: No concerning skin lesions or rashes on exposed skin Neuro: Nonfocal Psych: Appropriate Const: Vital Signs, click to edit/add: Vital Signs - 24 hr 12/21/24 17:20 12/21/24 20:28 12/21/24 22:37 Temperature 99.6 F 98.5 F Pulse Rate Pulse Rate [Left P ulse Oximeter] 123 H 108 H Pulse Rate [Right Dorsalis Pedis] Respiratory Rate 16 16 16 Blood Pressure [Ri ght Arm] 133/85 131/91 H Pulse Oximetry 93 97 Oxygen Delivery Me thod Room Air Room Air 12/21/24 22:37 12/21/24 22:37 12/21/24 23:00 Temperature 99.6 F Pulse Rate 91 Pulse Rate [Left P ulse Oximeter] 98 Pulse Rate [Right Dorsalis Pedis] Respiratory Rate 16 16 Blood Pressure [Ri ght Arm] 113/72 Pulse Oximetry 94 94 Oxygen Delivery Me thod Room Air Room Air 12/22/24 02:19 12/22/24 07:00 12/22/24 07:00 Temperature 99.2 F Pulse Rate 79 Pulse Rate [Left P ulse Oximeter] 102 H Pulse Rate [Right Dorsalis Pedis] Respiratory Rate 16 Blood Pressure [Ri ght Arm] 131/75 Pulse Oximetry 96 95 Oxygen Delivery Me thod Room Air Room Air 12/22/24 07:00 Temperature 98.7 F Pulse Rate Pulse Rate [Left P ulse Oximeter] Pulse Rate [Right Dorsalis Pedis] 88 Respiratory Rate 16 Blood Pressure [Ri ght Arm] 120/73 Pulse Oximetry 95 Oxygen Delivery Me thod Room Air DS: Data Data Completed and Pending Labs on day of discharge: Labs from last 24 hours 12/22/24 06:15 WBC 11.34 H RBC 4.03 L Hgb 12.4 L Hct 37.0 MCV 92 MCH 31 MCHC 34 RDW Coeff of Lisa 12.8 Plt Count 134 L Neut % (Auto) 64.9 Lymph % (Auto) 17.5 L Jerome % (Auto) 16.2 H Eos % (Auto) 0.7 Baso % (Auto) 0.3 Neut # (Auto) 7.40 H Lymph # (Auto) 2.00 Jerome # (Auto) 1.80 H Eos # (Auto) 0.10 Baso # (Auto) 0.00 Abs Immat Gran (auto) 0.00 Imm/Tot Granulo (auto) 0.4 Sodium 134 L Potassium 4.6 Chloride 101 Carbon Dioxide 28 Anion Gap 5 L BUN 18 Creatinine 1.0 Estimated Creat Clear 73.24 Estimated GFR 79 Glucose 115 Calcium 8.7 Discharge Plan Discharge Disposition: Home, Self-Care Date of Admission: 12/21/24 13:08 Attending Provider on Discharge: Uli Wayne Consulting Providers: Kenzie Brand; Josette Valle; Jim Baig; Shar Oliver; Carl Keen; Trish Davies; Edna Marin; Bee Mccarthy; Uli Wayne; Glenys Betancourt; Betty Mcdaniels; Jeffery Levy; Burton Gray; Zachary Sommer; Mauricio Dwyer; Tray Browning; Sarah Arnold; Chester Angeles; Moira Garcia; Joce Ferrer V; Vicenta Callahan; Tiffany Burleson; Ankita Nice; Isela Lopez; Sunni Prado; Monika Peterson; Dano Carrillo; Karma Chopra; Sebas Chopra; Geovani Kruse; Brad Valdivia; Edvin Fink; French Cornell; Violette Mancilla; Julianne Lancaster; Yanique Posadas; Alessandro Golden Primary Care Provider: Demar Devi Condition: Improved Anticipated Discharge Date/Time: 12/22/24 11:30 Discharge Medications: New sennosides [Senna Lax] 8.6 mg Tablet 17.2 mg PO BID PRN (Reason: constipation) Qty: 100 0RF acetaminophen 500 mg capsule 500 - 1,000 mg PO Q6H MDD 4000mg per day PRN (Reason: pain) Qty: 100 0RF oxycodone 5 mg Tablet 2.5 - 5 mg PO Q4-6H MDD 6 tabs per day PRN (Reason: Pain) Qty: 42 0RF Rx Instructions: Minimize. Discontinue as soon as possible diltiazem HCl [DILT-XR] 120 mg Capsule,Ext.Rel 24h Degradable 120 mg PO DAILY 30 Days Qty: 30 2RF Continued multivitamin [Multiple Vitamins] Tablet 1 tab PO QDAY cholecalciferol (vitamin D3) [Vitamin D3] 25 mcg (1,000 unit) tablet 25 mcg PO QDAY atorvastatin 80 mg tablet 80 mg PO QPM apixaban 5 mg tablet 5 mg PO BID cyanocobalamin (vitamin B-12) 1,000 mcg tablet 1,000 mcg PO DAILY vitamin E 670 mg (1,000 unit) capsule 670 mg PO DAILY All Day Allergy (cetirizine) 10 mg capsule 10 mg PO DAILY ascorbic acid (vitamin C) 500 mg capsule 500 mg PO DAILY Discharge Orders: Discharge Order (Routine); Ordered 12/22/24 Ordered By: Uli Wayne Consulting provider completed their portion of the discharge: Yes Patient Education: Diltiazem (By mouth), Acetaminophen (By mouth), Oxycodone, Rapid Release (By mouth), Senna (By mouth), A-fib (Atrial Fibrillation) (GEN), Total Knee Replacement (DC) Additional Instructions: 1. ZIO patch 2. Follow-up with PCP in 5-10 days 3. Keep cardiology appointment as already established 4. Return to clinic or hospital sooner if condition warrants Activity Level: Activity as Tolerated and No strenuous activity Activity Detail: Keep dressing on. This will be removed in clinic at your post operative appointment. Dressing is waterproof. May shower. Notify orthopedics if your dressing becomes compromised and gets saturated in shower. Attend outpatient physical therapy if scheduled. Ice and elevate operative extremity without restriction. Swelling and bruising will worsen within the first week. When swelling occurs, elevate the extremity above heart level several times a day and gently massage/pull soft tissue swelling toward hip. This allows gravity to assist in eliminating the swelling/edema. Wear compression stockings/herbert bandages as needed for swelling. Ambulate every hour throughout the day. If you drive, Do not drive while taking narcotic pain medication. Do not drink alcohol while taking narcotic pain medication. May drive when safe to do so and have full function of the extremities, this may take 6 weeks or more. Notify Orthopedics with any questions or concerns. ( phone: [phone]) Discharge Diet: Regular Follow Up Appointments: Liza Mcnally PA-C [Physician Contact Assembler, Orthopedics] - 01/02/25 10:00 am Referral Note: Appointment @ the [facility] Demar Devi MD [Primary Care Provider, Family Practice] - 12/27/24 11:20 am Referral Note: [facility] [place] for follow up with PCP Forms: Patient Belongings, MyHealth Info Instructions
== END 2024-12-22 12:00 | disposition home or self-care (01) | DRG 470 ==
LOC: OR 14:12 → MEDSURG 14:12
PROVIDERS: Admitting Provider Orthopaedic Surgery; PCP Family Medicine; Visit Provider Family Medicine
PROC: 0SRC0J9 Replacement of Right Knee Joint with Synthetic Substitute, Cemented, Open Approach (ICD-10-PCS; CPT 27447; principal; 2024-12-20 08:30)
DX: M17.11 Unilateral primary osteoarthritis, right knee (principal); G89.18 Other acute postprocedural pain; I48.0 Paroxysmal atrial fibrillation; Z79.01 Long term (current) use of anticoagulants; E78.5 Hyperlipidemia, unspecified; E66.9 Obesity, unspecified; Z87.891 Personal history of nicotine dependence
CPT/HCPCS: 01402; 36415; 64447; 64454; 73560; 76942; 80048; 85025; 93246; 97110; 97116; 97162; 97165; 97530; 97535; 99100; A9270; C1776; J0665; J0690; J2250; J2371; J2405; J2704; J3010; J3475; J7120